=== PATIENT | female | born 1975 | race Caucasian/White ===

== ENCOUNTER → 2020-12-19 | Outpatient (CLI) | payer OTHER ==
--- NOTE | 2020-12-20 08:19 | RAD ---
CLINICAL INDICATION: ARGELIA ESTEVEZ, who is 45 years of age, presents for further evaluation of a pal pable abnormality in the right breast COMPARISON: 06/02/2018 TECHNIQUE: Bilateral tomographic CC and MLO views of both breasts were obtained using digital [employer] ue. Computer-aided detection tools were utilized. BREAST COMPOSITION: There are scattered fibroglandular densities. MAMMOGRAM FINDINGS: Multiple bilateral benign type well-circumscribed masses appear grossly stable to prior mammogram 05/23. There are no suspicious masses, microcalcifications, or architectural distortion to suggest malignanc y in the left breast. The visualized axillae appear unremarkable. ULTRASOUND FINDINGS: Targeted ultrasound of the patient detected area of concern was performed. 9:00 position, 7.5 cm from the nipple: A hypoechoic mass of circumscribed margins and round/oval shap e is present, measuring 8 mm. This demonstrates internal homogenous echogenicity. IMPRESSION: 1. Right breast probably benign mass for which follow up is recommended. Short term follow-up ultraso und is recommended. RECOMMENDATION: In the absence of new clinical symptoms or change in physical exam, short term follow up diagnostic e xamination is recommended in 6 months to assess for interval stability. BIRADS 3: PROBABLY BENIGN Electronically signed by: Brian Jovel MD (12/20/2020 8:17 AM) [id number]
== END ==
LOC: MAMMO 12:42
PROVIDERS: ATTEND Family Medicine
DX: N60.01 Solitary cyst of right breast (principal); N60.11 Diffuse cystic mastopathy of right breast
CPT/HCPCS: 76642; 77066; G0279; 77062

== ENCOUNTER → 2021-06-26 | Outpatient (CLI) | payer OTHER ==
--- NOTE | 2021-06-26 11:31 | RAD ---
US BREAST RT Clinical Indication: Reason: FOLLOW UP RT BREAST Comparison: Right breast ultrasound December 19, 2020. TECHNIQUE: Real-time ultrasound imaging of the right breast is performed. Findings: In the right breast at the 9:00 position 7.5 cm from the nipple there is a well-circumscribed hypoech oic mass measuring 9 mm, previously 8 mm. Color Doppler demonstrates some internal blood flow. There are no posterior acoustic features. There are no abnormal axillary lymph nodes. IMPRESSION: 1. Interval stability of a small hypoechoic mass at the 9:00 position 7.5 cm from the nipple. Mass m ay be a fibroadenoma. Recommend additional ultrasound follow-up in 6 months. 2. BI-RADS Category 3, probably benign. Electronically signed by: Unruly Unger MD (06/26/2021 11:28 AM) [id number]
== END ==
LOC: MAMMO 09:45
PROVIDERS: ATTEND Family Medicine
DX: N63.11 Unspecified lump in the right breast, upper outer quadrant (principal)
CPT/HCPCS: 76641